=== PATIENT | female | born 1980 | race Caucasian/White ===

== ENCOUNTER 2023-01-23 21:39 | Emergency (ER) | payer OTHER ==
[2023-01-23 21:46] VITALS: BP 136/79
--- NOTE | 2023-01-23 21:53 | ED Physician Documentation ---
History of Present Illness - Stated complaint Stated Complaint: FT INJURY - Chief complaint Chief Complaint: Trauma Ext - Additonal information Additional information: Patient 42-year-old female with right great toe pain. A staff member here at [facility]. Rolled a gurney over her right foot. Reports pain to the right toe. Has been ambulatory since the event. Denies previous orthopedic injuries to the same foot. Review of Systems Constitutional: denies: Fever Eyes: denies: Loss of vision Ears: denies: Loss of hearing Nose: denies: Rhinorrhea / runny nose Throat: denies: Dental pain / toothache Cardiac: denies: Chest pain / pressure Respiratory: denies: Dyspnea GI: denies: Abdominal Pain : denies: Dysuria Musculoskeletal: denies: Neck pain Neurologic: denies: Generalized weakness PD PAST MEDICAL HISTORY - Allergies Allergies/Adverse Reactions: Allergies Allergy/AdvReac Type Severity Reaction Status Date / Time No Known Drug Allergies Allergy Verified 01/23/23 21:46 PD ED PE NORMAL - General General: Alert and oriented X 3 - HEENT HEENT: Atraumatic - Respiratory Respiratory: No respiratory distress - Extremities Extremities: Other (Tenderness to palpation to the ventral aspect of the right great toe. DP and PT pulses palpable. No navicular pain, pain at the base of the fifth metatarsal, medial or lateral malleoli or pain.) Results - Vitals Vitals: Oxygen O2 Source Room air PD Medical Decision Making - ED course Complexity details: reviewed results ED course: Patient 42-year-old female presenting to the emergency department with right great toe injury. 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 Neurovascularly intact. X-rays taken. Patient elected to leave the emergency department prior to formal read with radiology. Was offered [place] shoe and crutches. She excepted the hard soled shoe but declined crutches. She was offered ibuprofen or acetaminophen for pain control which was declined. Radiology did identify a nondisplaced intra-articular fracture to the great toe. This information was communicated By phone with the patient as well as strategies for pain management as well and the importance of follow-up with primary care. She was provided with a work note. Clear return precautions given. Departure - Departure Disposition: 01 Home, Self Care Clinical Impression: Fracture of great toe of right foot Forms: Activity restrictions Discharge Date/Time: 01/23/23 23:18
--- NOTE | 2023-01-23 22:58 | XRAY Report ---
PROCEDURE: Toe(s) RT INDICATIONS: Crush injury toe TECHNIQUE: 3 views of the first toe(s) acquired. COMPARISON: None. FINDINGS: Bones: No dislocations. No suspicious bony lesions. On one of the 3 views a clearly visualized non displaced fracture can be seen at the lateral plantar articular margin of the distal phalanx abutting the interphalangeal joint. Soft tissues: No suspicious soft tissue densities. IMPRESSION: Nondisplaced acute fracture at the articular margin of the base of the first distal phalanx. Reviewed by: Cale Butt MD on 01/23/2023 10:57 PM PDT Approved by: Cale Butt MD on 01/23/2023 10:57 PM PDT Station ID: [id number]
== END 2023-01-23 23:18 | disposition home or self-care (01) ==
LOC: ED 21:39
DX: S92.424A Nondisplaced fracture of distal phalanx of right great toe, initial encounter for closed fracture (principal); X58.XXXA Exposure to other specified factors, initial encounter; Y99.0 Civilian activity done for income or pay
CPT/HCPCS: 1040M; 99283